=== PATIENT | male | born 1950 | race Caucasian/White ===

== ENCOUNTER 2016-11-19 10:28 | Day surgery (SDC) | payer BC ==
--- NOTE | ~2016-11-19 | EGD ---
EGD REPORT [facility] [address] [address] NAME: LARISSA ELI : [birth year] STATUS : REG [facility] PAT#: [id number] AGE: 66 ADM/REG DATE : 11/19/16 MR#: [id number] REPORT SERV DATE: 11/19/16 DICTATED BY: AIMEE AQUINO DATE: 11/19/16 REPORT STATUS : Draft TRANSCRIBED BY: [facility] DATE: 11/19/16 [facility] Patient Name: Larissa Eli Date of : 1950 Attending MD: AIMEE AQUINO MD Procedure Date No Time: 11/19/2016 Procedure: Colonoscopy Indications: Follow-up for history of adenomatous polyps in the colon, Last colonoscopy: October 2014 Referring MD: SARAI DAN MD Medicines: Propofol per Anesthesia Complications: No immediate complications. Estimated blood loss: None. Procedure: Pre-Anesthesia Assessment: - After reviewing the risks and benefits, the patient was deemed in satisfactory condition to undergo the procedure. - Prior to the procedure, a History and Physical was performed, and patient medications and allergies were reviewed. The patient's tolerance of previous anesthesia was also reviewed. The risks and benefits of the procedure and the sedation options and risks were discussed with the patient. All questions were answered, and informed consent was obtained. Prior Anticoagulants: The patient has taken no previous anticoagulant or antiplatelet agents. ASA Grade Assessment: II - A patient with mild systemic disease. After reviewing the risks and benefits, the patient was deemed in satisfactory condition to undergo the procedure. After I obtained informed consent, the scope was passed under direct vision. Throughout the procedure, the patient's blood pressure, pulse, and oxygen saturations were monitored continuously. The CF [id number] was introduced through the anus and advanced to the cecum, identified by appendiceal orifice and ileocecal valve. The colonoscopy was performed without difficulty. The ileocecal valve and appendiceal orifice were photographed. The patient tolerated the procedure well. The quality of the bowel preparation was good. The bowel preparation used was split dose SUPREP. Scope withdrawal time was greater than 11 minutes. Findings: The perianal and digital rectal examinations were normal. Pertinent negatives include normal sphincter tone. Non-bleeding internal hemorrhoids were found during retroflexion and EGD REPORT [address] [address] NAME: LARISSA ELI : [birth year] STATUS : REG [facility] [place] PAT#: [id number] AGE: 66 ADM/REG DATE : 11/19/16 MR#: [id number] REPORT SERV DATE: 11/19/16 DICTATED BY: AIMEE AQUINO DATE: 11/19/16 REPORT STATUS : Draft TRANSCRIBED BY: [employer] DATE: 11/19/16 were small and Grade I (internal hemorrhoids that do not prolapse). Three sessile polyps were found in the transverse colon. The polyps were small in size. These polyps were removed with a hot snare. Resection and retrieval were complete. Estimated blood loss: none. A sessile polyp was found in the transverse colon. The polyp was 12 mm in size. The polyp was removed with a hot snare. Resection and retrieval were complete. Estimated blood loss: none. A sessile polyp was found in the descending colon. The polyp was small in size. The polyp was removed with a hot snare. Resection and retrieval were complete. Estimated blood loss: none. A sessile polyp was found in the rectum. The polyp was small in size. The polyp was removed with a hot snare. Resection and retrieval were complete. Estimated blood loss: none. The exam was otherwise without abnormality. Impression: - Non-bleeding internal hemorrhoids. - Three small polyps in the transverse colon. Resected and retrieved. - One 12 mm polyp in the transverse colon. Resected and retrieved. - One small polyp in the descending colon. Resected and retrieved. - One small polyp in the rectum. Resected and retrieved. - The examination was otherwise normal. Recommendation: - Discharge patient to home (ambulatory). - Return to previous diet. - Continue present medications. - Await pathology results. - Repeat colonoscopy in 2 years for surveillance of multiple adenomas and for surveillance of polyps greater than 1 cm in size. - Patient has a contact number available for emergencies. The signs and symptoms of potential delayed complications were discussed with the patient. Return to normal activities tomorrow. Written discharge instructions were provided to the patient. Procedure Code(s): --- Professional --- 72113, Colonoscopy, flexible, proximal to splenic flexure; with removal of tumor(s), polyp(s), or other lesion(s) by snare technique Diagnosis Code(s): --- Professional --- K64.0, First degree hemorrhoids K62.1, Rectal polyp D12.4, Benign neoplasm of descending colon EGD REPORT [address] [address] NAME: LARISSA ELI : 52 STATUS : REG [facility] PAT#: [id number] AGE: 66 ADM/REG DATE : 11/19/16 MR#: [id number] REPORT SERV DATE: 11/19/16 DICTATED BY: AIMEE AQUINO. DATE: 11/19/16 REPORT STATUS : Draft TRANSCRIBED BY: [employer] DATE: 11/19/16 D12.3, Benign neoplasm of transverse colon Z86.010, Personal history of colonic polyps CPT copyright 2013 [employer]. All rights reserved. The codes documented in this report are preliminary and upon complex commercial litigation paralegal review may be revised to meet current compliance requirements. AIMEE AQUINO MD 11/19/2016 11:54 AM This report has been signed electronically. Number of Addenda: 0 Note Initiated On: 11/19/2016 11:21 AM Scope Withdrawal Time 0 hours 12 minutes 5 seconds [address] [place] [id number]
[~2016-11-19 10:28] MED LIST: ANDROGEL5 TOP; ASAB PO; CENTRUM PO; GLUCXL10 PO; Glucosamine Chondroi; HYZAAR 100/25 T1 TAB PO; HYZAAR1 TAB PO; INVOKANA300 MG PO; LANTUS SC; LOFIBRA160 MG PO; NORV5 PO; RIOMET PO; ZOCOR20 PO
== END 2016-11-19 23:59 | disposition home or self-care (01) ==
LOC: DMU 10:28
PROVIDERS: Internal Medicine Gastroenterology
PROC: 0DBP8ZZ Excision of Rectum, Via Natural or Artificial Opening Endoscopic (ICD-10-PCS; 2016-11-19)
PROC: 0DBM8ZZ Excision of Descending Colon, Via Natural or Artificial Opening Endoscopic (ICD-10-PCS; 2016-11-19)
PROC: 0DBL8ZZ Excision of Transverse Colon, Via Natural or Artificial Opening Endoscopic (ICD-10-PCS; principal; 2016-11-19 12:00)
DX: Z12.11 Encounter for screening for malignant neoplasm of colon (principal); D12.3 Benign neoplasm of transverse colon; D12.4 Benign neoplasm of descending colon; D12.8 Benign neoplasm of rectum; K64.0 First degree hemorrhoids; I10 Essential (primary) hypertension; E11.9 Type 2 diabetes mellitus without complications; G47.33 Obstructive sleep apnea (adult) (pediatric); Z79.82 Long term (current) use of aspirin; Z79.4 Long term (current) use of insulin; Z79.84 Long term (current) use of oral hypoglycemic drugs; Z79.899 Other long term (current) drug therapy; E78.00 Pure hypercholesterolemia, unspecified; Z87.442 Personal history of urinary calculi; Z98.890 Other specified postprocedural states
CPT/HCPCS: 82962; 88305